=== PATIENT | female | born 1970 | race African-American/Black ===

== ENCOUNTER 2016-08-11 15:49 | Emergency (ER) | payer OTHER ==
[~2016-08-11] VITALS: Ht 160 cm; Wt 136.1 kg
[~2016-08-11 15:49] MED LIST: ADVAIR HFA115 MCG/21 INH; AMARYL2 MG PO; BACLOFEN 10MG T10 MG PO; CATAPRES0.1 MG PO; CELEXA 20 MG TA20 MG PO; CIPROFLOXACIN500 M1 PO; COLACE100 MG PO; DEMADEX20 MG PO; DUONEB 2.5-0.5 M3 ML INH; ENOXAPARIN40 MG/0.1 SUBQ; FLONASE 0.05%50 MCG NASAL; GABAPENTIN800 M1 PO; HYDROCHLOROTH12.5 M1 PO; HYDROCHLOROTHIA25 M1 PO; HYDROCHLOROTHIA25 M2 PO; HYDROCODON-ACE1 EAC7 PO; HYDROCODONE-AC120 ML PO; IBUPROFEN 600600 M1 PO; IRON325 PO; LASIX 40 MG TAB40 M2 PO; LEVAQUIN 500 M500 M2 PO; LEVAQUIN 500 M500 MG PO; LIDODERM 5%1 PATC1 TRANSDERM; LISINOPRIL10 MG PO; LISINOPRIL20 MG PO; LISINOPRIL40 MG PO; LORTAB 5 MG/5001 TAB PO; LYRICA 50 MG50 MG PO; METFORMIN HCL500 MG PO; MILK OF MA2400 MG/10 PO; NEURONTIN 300300 M1 PO; NEURONTIN600 MG PO; NICOTINE TRANSD21 M1; NORCO 5-325 TA1 EACH PO; NORFLEX100 MG PO; PAXIL10 MG; POTASSIUM20 PO; PREDNISONE 10 M10 MG PO; PREDNISONE 20 M20 MG; PREDNISONE 20 M20 MG PO; PREDNISONE50 MG PO; PREPARATION H1 EAC2 TP; PROAIR HFA8.5 GM INH; PROTONIX40 M1 PO; TIZANIDINE HCL4 MG PO; TRAMADOL 50 MG50 MG PO; TYLENOL325 MG PO; VITAMIN D 5050000 I1 PO; ZANAFLEX4 MG PO; ZOCOR20 MG PO; ZOFRAN ODT4 MG DISSOLVE
[2016-08-11 16:43] LABS: HEMATOCRIT 38.3 % (37.0-47.0); HEMOGLOBIN 12.5 gm/dL (12.0-15.0); MCH 25.3 pg (26.0-34.0); MCHC 32.6 % (28.0-37.0); MCV 77.5 fL (80.0-100.0); PLATELET COUNT 224 thou/uL (150-400); RBC 4.94 mil/uL (4.20-5.00); RDW 15.7 % (10.5-14.5); WBC 9.7 thou/uL (4.0-11.0)
[2016-08-11] MEDS ORDERED: CYMBALTA30 MG PO (16:47)
[2016-08-11 16:48] LABS: MANUAL DIFF YES
[2016-08-11 16:51] LABS: CALCIUM 9.1 mg/dL (8.5-10.1); POTASSIUM 4.2 mmol/L (3.5-5.1)
[2016-08-11 17:03] LABS: ALBUMIN 3.7 g/dL (3.4-5.0); TOTAL BILIRUBIN 0.2 mg/dL (<0.1-1.0); TOTAL PROTEIN 7.9 g/dL (6.4-8.2)
[2016-08-11 17:06] LABS: ABSOLUTE NEUTROPHILS 6.7 thou/uL (1.4-8.2); ANISOCYTOSIS 1+; POLYCHROMASIA OCCASIONAL; TOTAL CELL COUNT 100
[2016-08-11] MEDS ORDERED: BACLOFEN 10MG T10 MG PO (18:51)
[2016-08-11] MEDS ORDERED: NAPROSYN500 M1 PO (18:51)
[2016-09-17] MEDS ORDERED: ACETAMINOPHEN325 M1 PO (12:29)
[2016-09-17] MEDS ORDERED: PEDIA-LAX50 MG/15 M PO (12:29)
[2016-09-17] MEDS ORDERED: HEPARIN SO5000 UNIT/ SUBQ (12:29)
[2016-09-17] MEDS ORDERED: IRON325 PO (12:29)
[2016-09-17] MEDS ORDERED: DUONEB 2.5-0.5 M3 ML INH ×2 (12:29)
[2016-09-17] MEDS ORDERED: SENNA PO (12:29)
[2016-09-17] MEDS ORDERED: AUGMENTIN 875-1 EACH PO (12:29)
[2016-09-17] MEDS ORDERED: LISINOPRIL10 MG PO (12:29)
== END 2016-08-11 19:29 | disposition home or self-care (01) ==
LOC: ER 15:49
PROVIDERS: Emergency Medicine
DX: S46.911A Strain of unspecified muscle, fascia and tendon at shoulder and upper arm level, right arm, initial encounter (principal); S76.011A Strain of muscle, fascia and tendon of right hip, initial encounter; I10 Essential (primary) hypertension; E11.9 Type 2 diabetes mellitus without complications; K21.9 Gastro-esophageal reflux disease without esophagitis; J44.9 Chronic obstructive pulmonary disease, unspecified; F31.9 Bipolar disorder, unspecified; F17.210 Nicotine dependence, cigarettes, uncomplicated; F10.99 Alcohol use, unspecified with unspecified alcohol-induced disorder; W19.XXXA Unspecified fall, initial encounter; Y93.89 Activity, other specified; Y92.89 Other specified places as the place of occurrence of the external cause; Y99.8 Other external cause status

== ENCOUNTER 2016-12-11 19:51 | Emergency (ER) | payer OTHER ==
[~2016-12-11] VITALS: Ht 160 cm; Wt 117.9 kg
[~2016-12-11 19:51] MED LIST changes: +ACETAMINOPHEN325 M1 PO; +AUGMENTIN 875-1 EACH PO; +CYMBALTA30 MG PO; +HEPARIN SO5000 UNIT/ SUBQ; +NAPROSYN500 M1 PO; +PEDIA-LAX50 MG/15 M PO; +SENNA PO
[2016-12-11] MEDS ORDERED: DUONEB 2.5-0.5 M3 ML INH (20:51)
[2016-12-11] MEDS ORDERED: ASPIR 8181 MG PO (20:52)
[2016-12-11] MEDS ORDERED: LIORESAL 10 MG10 MG PO (20:56)
[2016-12-11] MEDS ORDERED: IBUPROFEN 600600 M1 PO (20:56)
== END 2016-12-11 21:40 | disposition home or self-care (01) ==
LOC: ER 19:51
DX: S16.1XXA Strain of muscle, fascia and tendon at neck level, initial encounter (principal); S40.011A Contusion of right shoulder, initial encounter; S00.83XA Contusion of other part of head, initial encounter; I10 Essential (primary) hypertension; E11.9 Type 2 diabetes mellitus without complications; E78.00 Pure hypercholesterolemia, unspecified; K21.9 Gastro-esophageal reflux disease without esophagitis; J44.9 Chronic obstructive pulmonary disease, unspecified; G47.30 Sleep apnea, unspecified; F31.9 Bipolar disorder, unspecified; F17.210 Nicotine dependence, cigarettes, uncomplicated; Z98.890 Other specified postprocedural states; W19.XXXA Unspecified fall, initial encounter; Y93.89 Activity, other specified; Y92.89 Other specified places as the place of occurrence of the external cause; Y99.8 Other external cause status

== ENCOUNTER 2017-05-14 11:11 | Emergency (ER) | payer OTHER ==
[~2017-05-14] VITALS: Ht 160 cm; Wt 114.8 kg
[~2017-05-14 11:11] MED LIST changes: +ASPIR 8181 MG PO; +LIORESAL 10 MG10 MG PO
[2017-05-14] MEDS ORDERED: NEURONTIN600 MG PO (11:27)
[2017-05-14 11:29] LABS: URINE BILIRUBIN NEGATIVE (Negative); URINE BLOOD NEGATIVE (Negative); URINE COLOR YELLOW; URINE GLUCOSE-RANDOM* NEGATIVE (Negative); URINE KETONES NEGATIVE (Negative); URINE NITRITE NEGATIVE (Negative); URINE PROTEIN (DIPSTICK) NEGATIVE (Negative); URINE SPECIFIC GRAVITY 1.025 (1.003-1.035); URINE UROBILINOGEN 0.2 E.U./dl (0.2-1.0)
[2017-05-14] MEDS ORDERED: DOXYCYCLINE 10100 MG PO (12:43)
[2017-05-14] MEDS ORDERED: NORCO 5-325 TA1 EACH PO (12:45)
[2017-05-17 00:06] LABS: CHLAMYDIA TRACHOMATIS-PCR Negative (Negative); NEISSERIA GONORRHEA-PCR Negative (Negative)
== END 2017-05-14 12:49 | disposition home or self-care (01) ==
LOC: ER 11:11
PROVIDERS: Emergency Medicine
DX: R30.0 Dysuria (principal); M54.6 Pain in thoracic spine; N34.2 Other urethritis; I10 Essential (primary) hypertension; E11.9 Type 2 diabetes mellitus without complications; F31.9 Bipolar disorder, unspecified; E78.00 Pure hypercholesterolemia, unspecified; K21.9 Gastro-esophageal reflux disease without esophagitis; G40.909 Epilepsy, unspecified, not intractable, without status epilepticus; Z98.890 Other specified postprocedural states; F17.210 Nicotine dependence, cigarettes, uncomplicated; F10.99 Alcohol use, unspecified with unspecified alcohol-induced disorder

== ENCOUNTER 2017-12-07 15:22 | Emergency (ER) | payer OTHER ==
[~2017-12-07] VITALS: Ht 160 cm; Wt 111.6 kg
[~2017-12-07 15:22] MED LIST changes: +DOXYCYCLINE 10100 MG PO
== END 2017-12-07 19:07 | disposition home or self-care (01) ==
LOC: ER 15:22
DX: S80.11XA Contusion of right lower leg, initial encounter (principal); I10 Essential (primary) hypertension; E11.9 Type 2 diabetes mellitus without complications; E78.00 Pure hypercholesterolemia, unspecified; K21.9 Gastro-esophageal reflux disease without esophagitis; J44.9 Chronic obstructive pulmonary disease, unspecified; F17.210 Nicotine dependence, cigarettes, uncomplicated; W18.30XA Fall on same level, unspecified, initial encounter; Y93.89 Activity, other specified; Y92.89 Other specified places as the place of occurrence of the external cause; Y99.8 Other external cause status

== ENCOUNTER 2021-05-17 22:59 | Emergency (ER) | payer OTHER ==
[~2021-05-17] VITALS: Ht 160 cm; Wt 113.4 kg
[2021-05-17 23:31] LABS: ABSOLUTE NEUTROPHILS 4.4 thou/uL (1.4-8.2); BASOPHILS 0.3 % (0.0-2.0); EOSINOPHILS 1.5 % (0.0-3.0); HEMATOCRIT 30.8 % (37.0-47.0); HEMOGLOBIN 9.8 gm/dL (12.0-15.0); LYMPHOCYTES 27.9 % (24.0-44.0); MCHC 31.8 g/dL (28.0-37.0); MCV 75.6 fL (80.0-100.0); MONOCYTES 13.6 % (1.0-8.0); PLATELET COUNT 234 thou/uL (150-400); POLYS 56.7 % (36.0-66.0); RBC 4.08 mil/uL (4.20-5.00); RDW 18.9 % (10.5-14.5); WBC 7.7 thou/uL (4.0-11.0)
[2021-05-17 23:35] LABS: CALCIUM 8.5 mg/dL (8.5-10.1); POTASSIUM 4.4 mmol/L (3.5-5.1)
[2021-05-17 23:55] LABS: BE(vivo) -4.5 mmol/L (-2 to +3); HCO3 20.9 mmol/L (22.0-26.0); PCO2 39.9 mmHg (35.0-45.0); PO2 181.8 mmHg (80.0-100.0); pH 7.338 (7.360-7.450); sO2 99.2 % (92.0-98.0)
[2021-05-18 01:18] VITALS: BP 106/58
--- NOTE | 2021-05-18 07:34 | EKG ---
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
== END 2021-05-18 01:20 | disposition home or self-care (01) ==
LOC: ER 22:59
PROVIDERS: Emergency Medicine
DX: N28.9 Disorder of kidney and ureter, unspecified (principal); R42 Dizziness and giddiness; I10 Essential (primary) hypertension; E11.9 Type 2 diabetes mellitus without complications; E78.00 Pure hypercholesterolemia, unspecified; K21.9 Gastro-esophageal reflux disease without esophagitis; F31.9 Bipolar disorder, unspecified; J44.9 Chronic obstructive pulmonary disease, unspecified; F17.210 Nicotine dependence, cigarettes, uncomplicated; Z98.890 Other specified postprocedural states; Z79.891 Long term (current) use of opiate analgesic; Z79.1 Long term (current) use of non-steroidal anti-inflammatories (NSAID); Z79.899 Other long term (current) drug therapy; Z79.82 Long term (current) use of aspirin; Z79.84 Long term (current) use of oral hypoglycemic drugs